=== PATIENT | male | born 1995 | race Caucasian/White ===

== ENCOUNTER 2018-12-22 21:09 | Emergency (ER) | payer OTHER ==
[2018-12-22] MEDS: IBUPROFEN 800 MG TAB PO (21:42)
[2018-12-22 22:41] LABS: UR MUCUS FEW /HPF (NONE SEEN); UR RBC 97 /HPF (0-5); UR SQUAMOUS EPITHELIAL CELL FEW /HPF (FEW); UR WBC 1 /HPF (0-5)
[2018-12-22 22:51] LABS: UR BACTERIA FEW /HPF (NONE SEEN)
[2018-12-22 22:56] LABS: UR CLARITY HAZY (CLEAR); UR COLOR YELLOW (YELLOW); UR GLUCOSE (Dip) NEGATIVE (NEGATIVE); UR SPECIFIC GRAVITY (Dip) 1.035 (1.003-1.030)
[2018-12-22 22:57] LABS: ADD UMIC YES; UR ASCORBIC ACID NEGATIVE (NEGATIVE); UR BILIRUBIN (Dip) NEGATIVE (NEGATIVE); UR BLOOD (Dip) 3+ mg/dL (NEGATIVE); UR KETONES (Dip) NEGATIVE (NEGATIVE); UR LEUKOCYTE ESTERASE (Dip) NEGATIVE Leu/ul (NEGATIVE); UR NITRITE (Dip) NEGATIVE (NEGATIVE); UR TOTAL PROTEIN (Dip) 1+ mg/dl (NEGATIVE); UR UROBILINOGEN (Dip) 0.2 E.U./dL mg/dL (NEGATIVE)
== END 2018-12-22 23:56 | disposition home or self-care (01) ==
LOC: E/R 21:09
DX: N50.812 Left testicular pain (principal); R31.29 Other microscopic hematuria
CPT/HCPCS: 76870; 81001; 87086; 99284-25